=== PATIENT | male | born 1990 | race American Indian/Alaskan Native ===

== ENCOUNTER 2020-05-13 09:27 | Emergency (ER) | payer SELFPAY ==
[2020-05-13 09:44] VITALS: BP 147/88
--- NOTE | 2020-05-13 13:26 | Emergency Department Report ---
ED ENT HPI - General Chief complaint: Dental/Oral Stated complaint: DENTAL PAIN Time Seen by Provider: 05/13/20 12:46 Source: patient Mode of arrival: Ambulatory Limitations: No Limitations - History of Present Illness Initial comments: This is a 29-year-old male nontoxic, well nourished in appearance, no acute signs of distress presents to the ED with c/o of left lower toothache 3 weeks. Patient denies following up with a dentist. Patient stated that pain radiates from his job to his left side of head. Patient otherwise denies any head trauma. Patient describes toothache as aching level of 8 out of 10. Patient stated has some facial swelling. Patient denies any numbness, tingling, fever, chills, headache, stiff neck, abdominal pain, chest pain, shortness of breath. Patient denies any drug allergies or significant past medical history. MD complaint: tooth pain -: days(s) Location: tooth # 1 - pain here Severity: mild Severity scale (0 -10): 8 Quality: aching Consistency: constant Improves with: none Worsens with: none Context- Dental: history of dental caries, poor dental care Associated Symptoms: gum swelling, toothache. denies: fever, cough, pain with swallowing, sore throat, tinnitus, hearing loss, discharge from ear, rhinorrhea - Related Data Previous Rx's Medication Instructions Recorded Last Taken Type Cyclobenzaprine [Flexeril] 10 mg PO TID PRN #30 tablet 03/30/13 Unknown Rx Hydrocodone Bit/Acetaminophen 1 each PO Q6HR #20 tablet 03/30/13 Unknown Rx [Lortab 5-500 Tablet] Ibuprofen [Motrin] 600 mg PO Q8H PRN #60 tablet 03/30/13 Unknown Rx Clindamycin [Clindamycin CAP] 300 mg PO Q8H #21 cap 05/13/20 Unknown Rx Allergies Allergy/AdvReac Type Severity Reaction Status Date / Time No Known Allergies Allergy Unverified 03/30/13 17:55 ED Dental HPI - General Chief complaint: Dental/Oral Stated complaint: DENTAL PAIN Time Seen by Provider: 05/13/20 12:46 Source: patient Mode of arrival: Ambulatory Limitations: No Limitations - Related Data Previous Rx's Medication Instructions Recorded Last Taken Type Cyclobenzaprine [Flexeril] 10 mg PO TID PRN #30 tablet 03/30/13 Unknown Rx Hydrocodone Bit/Acetaminophen 1 each PO Q6HR #20 tablet 03/30/13 Unknown Rx [Lortab 5-500 Tablet] Ibuprofen [Motrin] 600 mg PO Q8H PRN #60 tablet 03/30/13 Unknown Rx Clindamycin [Clindamycin CAP] 300 mg PO Q8H #21 cap 05/13/20 Unknown Rx Allergies Allergy/AdvReac Type Severity Reaction Status Date / Time No Known Allergies Allergy Unverified 03/30/13 17:55 ED Review of Systems ROS: Stated complaint: DENTAL PAIN Other details as noted in HPI Comment: All other systems reviewed and negative Constitutional: denies: chills, fever Eyes: denies: eye pain, eye discharge, vision change ENT: dental pain. denies: ear pain, throat pain, hearing loss, epistaxis, congestion Respiratory: denies: cough, shortness of breath, wheezing Cardiovascular: denies: chest pain, palpitations Endocrine: no symptoms reported Gastrointestinal: denies: abdominal pain, nausea, diarrhea Genitourinary: denies: urgency, dysuria Musculoskeletal: denies: back pain, joint swelling, arthralgia Skin: denies: rash, lesions Neurological: denies: headache, weakness, paresthesias Psychiatric: denies: anxiety, depression Hematological/Lymphatic: denies: easy bleeding, easy bruising ED Past Medical Hx - Past Medical History Previous Medical History?: No - Surgical History Past Surgical History?: No - Social History Smoking Status: Current Every Day Smoker - Medications Home Medications: Home Medications Medication Instructions Recorded Confirmed Last Taken Type Cyclobenzaprine [Flexeril] 10 mg PO TID PRN #30 tablet 03/30/13 Unknown Rx Hydrocodone Bit/Acetaminophen 1 each PO Q6HR #20 tablet 03/30/13 Unknown Rx [Lortab 5-500 Tablet] Ibuprofen [Motrin] 600 mg PO Q8H PRN #60 tablet 03/30/13 Unknown Rx Clindamycin [Clindamycin CAP] 300 mg PO Q8H #21 cap 05/13/20 Unknown Rx ED Physical Exam - General Limitations: No Limitations General appearance: alert, in no apparent distress - Head Head exam: Present: atraumatic, normocephalic - Eye Eye exam: Present: normal appearance - Expanded ENT Exam Expanded Ear exam: Present: normal external inspection Mouth exam: Present: normal external inspection, tongue normal. Absent: drooling, trismus, muffled voice Teeth exam: Present: dental caries, dental tenderness #, gingival enlargement, other (slight facial swelling with no induration or flutance noted) Throat exam: Positive: normal inspection, other (uvula midline). Negative: tonsillar erythema, tonsillomegaly, tonsillar exudate, R peritonsillar mass, L peritonsillar mass - Neck Neck exam: Present: normal inspection, full ROM. Absent: tenderness, meningismus, lymphadenopathy - Respiratory Respiratory exam: Absent: respiratory distress - Cardiovascular Cardiovascular Exam: Present: regular rate - Extremities Exam Extremities exam: Present: full ROM - Back Exam Back exam: Present: full ROM - Neurological Exam Neurological exam: Present: alert, oriented X3, normal gait - Psychiatric Psychiatric exam: Present: normal affect, normal mood - Skin Skin exam: Present: warm, dry, intact, normal color. Absent: rash ED Course Vital Signs 05/13/20 09:43 Temperature 97.9 F Pulse Rate 76 Respiratory 18 Rate Blood Pressure 147/88 O2 Sat by Pulse 98 Oximetry - Reevaluation(s) Reevaluation #1: 05/13/20 13:25 Patient is speaking in full sentences with no signs of distress noted. ED Medical Decision Making - Medical Decision Making 29-year-old male that presents with dental abscess. Patient is stable and was examined by me. Patient be treated with clindamycin. Patient was instructed to follow-up with a oral surgeon tomorrow or if symptoms worsen and continue return to emergency room as soon as possible. At time of discharge, the patient does not seem toxic or ill in appearance. No acute signs of distress noted. Patient agrees to discharge treatment plan of care. No further questions noted by the patient. Critical care attestation.: If time is entered above; I have spent that time in minutes in the direct care of this critically ill patient, excluding procedure time. ED Disposition Clinical Impression: Dental abscess Disposition: - TO HOME OR SELFCARE Is pt being admited?: No Does the pt Need Aspirin: No Condition: Stable Instructions: Dental Abscess Additional Instructions: Follow-up with a oral surgeon tomorrow or if symptoms worsen and continue return to emergency room as soon as possible. [facility] [employer] Address: [id number], [place] [address] Hours: Monday Closed Monday 8AM-1PM, 2-5PM Monday 8AM-1PM, 2-5PM Monday 8AM-1PM, 2-5PM 8AM-1PM, 2-5PM Monday 7AM-2PM Monday Closed Prescriptions: Clindamycin [Clindamycin CAP] 300 mg PO Q8H #21 cap Referrals: PRIMARY MD MANDEEP [Primary Care Provider] - 3-5 Days MARIA DEL CARMEN MICHAEL MD [Staff Physician] - 3-5 Days [facility] [Outside] - 3-5 Days Forms: Work/School Release Form(ED) Time of Disposition: 13:26
== END 2020-05-13 13:56 | disposition home or self-care (01) ==
LOC: ED 09:27
DX: K04.7 Periapical abscess without sinus (principal); F17.200 Nicotine dependence, unspecified, uncomplicated; Z79.899 Other long term (current) drug therapy
CPT/HCPCS: 99282